=== PATIENT | female | born 1965 | race Caucasian/White ===

== ENCOUNTER 2019-05-06 14:59 | Emergency (ER) | payer OTHER, SELFPAY ==
[2019-05-06 15:08] VITALS: BP 114/65; PULSE 68; RESP 16; TEMP 37.3; O2SAT 99
--- NOTE | 2019-05-06 15:41 | DI.RAD.S_ITS ---
PROCEDURE: XR PELVIS 1-2V INDICATIONS: blunt injury R side TECHNIQUE: Single view(s) of the pelvis acquired. COMPARISON: None. FINDINGS: Bones: There is a minimally displaced fracture of the inferior right iliac wing. No other fracture or dislocation. Soft tissues: Visualized bowel gas pattern is normal. No suspicious soft tissue calcifications. IMPRESSION: Minimally displaced inferior right iliac wing fracture. Dictated by: Madelin Ballard M.D. on 05/06/2019 at 15:13 Approved by: Madelin Ballard M.D. on 05/06/2019 at 15:14
[2019-05-06] MEDS: KETOROLAC 60 MG/2 ML VIAL IM (15:45)
--- NOTE | 2019-05-06 15:48 | ED_ITS ---
HPI - Extremity Injury (Lower) General Chief Complaint: Extremity Injury, Lower Stated Complaint: hit by softball right hip, hurts Time Seen by Provider: 05/06/19 15:04 Source: patient Mode of arrival: ambulatory Limitations: no limitations History of Present Illness HPI Narrative: Patient presents emergency department complaining of pain over her right iliac crest after being struck on the bone with a softball. 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 Patient states that she is having pain in the area whenever she engages her hip flexors or area trunk musculature. Patient states that she does not feel as though there is any pain or injury within her abdominal cavity itself. Patient states the injury happened approximately 2 hours ago. She was not injured anywhere else. She denies numbness or tingling in her lower extremity, but states that even to move her ankle or foot causes pain in the hip area. Patient states that bearing weight causes pain in the area, as well. No other complaints at this time. Patient states her pain is an 8/10. Related Data Previous Rx's Medication Instructions Recorded hydrocodone-acetaminophen 1 tab PO Q4H PRN #14 tab 05/06/19 Review of Systems Constitutional Denies chills, Denies fever(s), Denies lethargy and Denies weakness Eyes Denies change in vision, Denies eye discharge, Denies irritation and Denies loss of vision ENT Ears, Nose, Mouth, and Throat: Denies change in voice, Denies neck pain and Denies sore throat Cardiovascular Denies chest pain, Denies irregular heart rhythm, Denies lightheadedness, Denies palpitations, Denies dyspnea, Denies dyspnea on exertion and Denies orthopnea Respiratory Denies cough, Denies dyspnea, Denies dyspnea on exertion and Denies wheezing Gastrointestinal Gastrointestinal: Denies abdominal pain, Denies change in bowel habits, Denies diarrhea, Denies nausea and Denies vomiting Genitourinary Denies hematuria, Denies flank pain, Denies urinary incontinence and Denies urinary urgency Musculoskeletal Denies neck pain Comments: Right pelvic bone pain Integumentary/Breasts Denies pruritus, Denies erythema, Denies rash and Denies wounds Neurologic Denies confusion, Denies loss of vision and Denies weakness Psychiatric Denies anxiety, Denies confusion, Denies depression, Denies homicidal ideation and Denies suicidal ideation Endocrine Denies palpitations Hematologic/Lymphatic Denies easy bruising Allergic/Immunologic Denies wheezing [facility] [place] Medical History Healthy adult (Acute) Surgical History No pertinent past surgical history (Acute) Social History Smoking Status: Never smoker Exam Initial Vital Signs Initial Vital Signs: Vital Signs Temperature 99.1 F 05/06/19 15:08 Pulse Rate 68 05/06/19 15:08 Respiratory Rate 16 05/06/19 15:08 Blood Pressure 114/65 05/06/19 15:08 Pulse Oximetry 99 05/06/19 15:08 Const General: cooperative and well developed Nutritional Appearance: well nourished Orientation: alert, awake, oriented x3 and not confused HENMT Head: normocephalic and atraumatic Ears: external ears normal Nose: external nose normal and No nasal discharge Face and sinus: face symmetric and No dry mucous membranes Mouth: oral mucosae normal and moist mucous membranes Teeth and gingiva: dentition normal Eyes General: appearance normal, both eyes and all related structures Eyelids: eyelids normal Conjunctivae: conjunctivae normal Sclera: sclerae normal Pupils: PERRL EOM: EOM intact bilaterally Neck Neck: normal visual inspection, trachea midline, No lymphadenopathy, No midline deformity and No JVD Lymphatic: No lymphedema Chest Chest: normal inspection of the chest Resp Effort & Inspection: normal respiratory effort, able to speak in complete sentences, no respiratory distress and no use of accessory muscles Cardio Rate: regular rate Rhythm: regular rhythm Heart Sounds: no click, no gallops, no murmurs and no rubs Pulses: normal peripheral pulses Other: Patient has intact distal pulses in her right lower extremity. GI Inspection: non-distended Palpation: soft, no hepatosplenomegaly, No guarding, No pulsatile mass and No tender Back/Spine/Pelvis Back: No CVA tenderness Cervical Spine: cervical ROM normal and No pain with cervical ROM Thoracic/Lumbar Spine: thoracic and lumbar spine normal to inspection Other: Patient has point tenderness with a visible contusion over the anterior aspect of her right iliac crest. No deformity or step-off. No tenderness over the inguinal ligament on the right. Skin General: no rashes or lesions noted, No jaundice and No petechiae Neuro General: alert, oriented x3, gait normal and no focal motor deficits Speech: speech normal Extrem General: no pedal edema and no calf tenderness Other: Patient has limited flexion of her right hip, secondary to pain. Psych Appearance: well kempt Mental Status: mental status grossly normal Attitude: cooperative Thought Content: normal and suicidality Judgment: judgment good Course Course Narrative: Patient declined narcotic pain medication in the emergency department, and opted for Toradol and ice. She was worked up with an x-ray of her pelvis, which showed a fracture of the lateral aspect of the iliac wing on the right. I discussed the case with Orthopedics, who stated this would be a stable fracture and not in need of further intervention. Ortho did state the patient could follow up with them in the next week or two, and I did communicate this to the patient. We have discussed symptomatic management at home, as well as the usual indications for return. Orders Ordered: Discontinued Medications Ketorolac Tromethamine (Toradol) 60 mg IM NOW ONE Stop: 05/06/19 15:42 Last Admin: 05/06/19 15:45 Dose: 60 mg Vital Signs - 8 hr 05/06/19 15:08 Temperature 99.1 F Pulse Rate 68 Respiratory Rate 16 Blood Pressure 114/65 Pulse Oximetry 99 MDM - Extremity Injury (Lower) Medical Records Attestation: I reviewed the patient's medical records. Imaging Data pelvis xray: Radiologist's impression: PROCEDURE: XR PELVIS 1-2V INDICATIONS: blunt injury R side TECHNIQUE: Single view(s) of the pelvis acquired. COMPARISON: None. FINDINGS: Bones: There is a minimally displaced fracture of the inferior right iliac wing. No other fracture or dislocation. Soft tissues: Visualized bowel gas pattern is normal. No suspicious soft tissue calcifications. IMPRESSION: Minimally displaced inferior right iliac wing fracture. Dictated by: Madelin Ballard M.D. on 05/06/2019 at 15:13 Approved by: Madelin Ballard M.D. on 05/06/2019 at 15:14 Discharge Plan Departure Patient Disposition: Home Clinical Impression: Closed pelvic fracture Qualifiers: Encounter type: initial encounter Pelvic bone location: ilium Fracture morphology: avulsion Fracture alignment: nondisplaced Laterality: right Qualified Code(s): S32.314A - Nondisplaced avulsion fracture of right ilium, initial encounter for closed fracture Discharge Date/Time: 05/06/19 16:52 Interventions: ED Discharge Assessment Last Done: 05/06/19 16:51 Instructions: DI for Pelvic Fracture Activity Restrictions/Additional Instructions: Your x-rays show that the edge of your bone has been cracked. Your case has been discussed with the orthopedic surgeon on-call, who states that this is a stable fracture which will heal on its own, and does not need surgery. He says you may weight bear as you can tolerate, though it might be helpful to use crutches and just put minimal weight on your right side until you are feeling better. Prescriptions: New hydrocodone-acetaminophen 5-325 mg tablet 1 tab PO Q4H PRN (Reason: pain) Qty: 14 RF: 0 Referrals: [facility] [Provider Group] (Call 1st thing tomorrow to set up a follow-up appointment.)
[2019-05-06 16:51] VITALS: BP 110/80; PULSE 85; O2SAT 100
== END 2019-05-06 16:52 | disposition home or self-care (01) ==
PROVIDERS: Emergency Provider Emergency Medicine
DX: S32.314A Nondisplaced avulsion fracture of right ilium, initial encounter for closed fracture (principal); W21.07XA Struck by softball, initial encounter; Y93.64 Activity, baseball
CPT/HCPCS: 72170; 96372; 99282; 99283; J1885